=== PATIENT | female | born 1975 ===

== ENCOUNTER 2016-09-23 16:18 | Emergency (ER) | payer OTHER ==
[2016-09-23 17:03] VITALS: BP 110/75; PULSE 85; RESP 20; TEMP 98.6; O2SAT 100
--- NOTE | 2016-09-23 17:12 | C.PDOC ---
History Of Present Illness 41 y.o female presents to ED with complaints of fever, dysuria, urgency for 1 weeks and today developed low back pain and chills. Patient denies vomiting, diarrhea, numbness, weakness, or incontinence. Time Seen by Provider: 09/23/16 16:54 Chief Complaint (Nursing): Back Pain History Per: Patient History/Exam Limitations: no limitations Onset/Duration Of Symptoms: Worse Since (today), Other (1 week) Current Symptoms Are (Timing): Still Present Severity: Mild Pain Scale Rating Of: 3 Recent travel outside of the [place]: No Past Medical History Reviewed: Historical Data, Nursing Documentation, Vital Signs Vital Signs: Last Vital Signs Temp 98.6 F 09/23/16 16:59 Pulse 85 09/23/16 16:59 Resp 20 09/23/16 16:59 BP 110/75 09/23/16 16:59 Pulse Ox 100 09/23/16 18:50 - Medical History PMH: Gastritis, Migraine - [facility] Procedures RESECTION OF CERVIX, VIA NATURAL OR ARTIFICIAL OPENING (09/25/15) RESECTION OF UTERUS, VIA NATURAL OR ARTIFICIAL OPENING (09/25/15) Family History: States: Unknown Family Hx - Social History Hx Tobacco Use: No Hx Alcohol Use: No Hx Substance Use: No - Immunization History Hx Tetanus Toxoid Vaccination: No Hx Influenza Vaccination: No Hx Pneumococcal Vaccination: No Review Of Systems Except As Marked, All Systems Reviewed And Found Negative. Constitutional: Positive for: Fever, Chills Gastrointestinal: Negative for: Vomiting, Diarrhea Genitourinary: Positive for: Dysuria, Other (urgency). Negative for: Incontinence Musculoskeletal: Positive for: Back Pain (lower) Neurological: Negative for: Weakness, Numbness Physical Exam - Physical Exam Appears: Non-toxic, No Acute Distress Skin: Warm, Dry Head: Atraumatic, Normacephalic Eye(s): bilateral: Normal Inspection, EOMI Neck: Normal ROM, Supple Chest: Symmetrical Cardiovascular: Rhythm Regular Respiratory: Normal Breath Sounds, No Rales, No Rhonchi, No Wheezing Gastrointestinal/Abdominal: Soft, Tenderness (suprapubic), No Guarding, No Rebound Back: Normal Inspection, No CVA Tenderness Extremity: Normal ROM Neurological/Psych: Oriented x3, Normal Speech, Normal Cognition, Normal Motor, Normal Sensation Gait: Steady ED Course And Treatment O2 Sat by Pulse Oximetry: 100 (room air) Pulse Ox Interpretation: Normal Medical Decision Making Medical Decision Making: Impression: 41 y.o female with dysuria, urgency and frequency Plan: * Motrin, pyridium * UA, HCG, culture Progress: UA shows findings consistent with UTI. Will treat with Cipro PO Patient advised to drink fluids and continue antibiotics Disposition Counseled Patient/Family Regarding: Diagnosis, Need For Followup, Rx Given - Disposition Referrals: [facility] [Outside] Disposition: HOME/ ROUTINE Disposition Time: 17:38 Condition: STABLE Additional Instructions: [place] el antibitico dos veces al da y asegrese de terminar de yuri todos los antibiticos. Beber mucho lquido. Si se realiz un cultivo de orina, vuelva a llamar para obtener resultados en 2-3 jaen para confirmar que el antibitico est tratando david la infeccin urinaria. Prescriptions: Ciprofloxacin [Cipro] 1 tab PO BID #14 tab Phenazopyridine [Pyridium] 200 mg PO Q8 #6 tab Instructions: Urinary Tract Infection in Women (DC) Print Language: MALTESE - POA Present On Arrival: None - Clinical Impression Clinical Impression: UTI (urinary tract infection) - PA / RESIDENTIAL SOLAR CONSULTANT / Resident Statement MD/DO has reviewed & agrees with the documentation as recorded. - Scribe Statement The provider has reviewed the documentation as recorded by the Scribe Pauline Wood All medical record entries made by the Scribe were at my direction and personally dictated by me. I have reviewed the chart and agree that the record accurately reflects my personal performance of the history, physical exam, medical decision making, and the department course for this patient. I have also personally directed, reviewed, and agree with the discharge instructions and disposition.
[2016-09-23 17:26] LABS: RBC URINE 2 /hpf (0-3); URINE BACTERIA FEW (<OCC); URINE BILIRUBIN NEGATIVE (NEGATIVE); URINE BLOOD NEGATIVE (NEGATIVE); URINE COLOR Yellow (YELLOW); URINE GLUCOSE (UA) NORMAL (Normal); URINE KETONE NEGATIVE (NEGATIVE); URINE LEUKOCYTE ESTERASE TRACE Leu/uL (Negative); URINE PROTEIN NEGATIVE (NEGATIVE); URINE UROBILINOGEN NORMAL mg/dL (0.2-1.0); WBC URINE 11 /hpf (0-5)
== END 2016-09-23 18:07 | disposition home or self-care (01) ==
LOC: C.ER 16:18
DX: N39.0 Urinary tract infection, site not specified (principal); B96.89 Other specified bacterial agents as the cause of diseases classified elsewhere

== ENCOUNTER 2016-10-18 11:06 | Emergency (ER) | payer OTHER ==
[2016-10-18 12:23] LABS: RBC URINE 2 /hpf (0-3); URINE BACTERIA FEW (<OCC); URINE BILIRUBIN NEGATIVE (NEGATIVE); URINE BLOOD 1+ (NEGATIVE); URINE COLOR Yellow (YELLOW); URINE GLUCOSE (UA) NORMAL (Normal); URINE KETONE NEGATIVE (NEGATIVE); URINE LEUKOCYTE ESTERASE 3+ Leu/uL (Negative); URINE PROTEIN NEGATIVE (NEGATIVE); URINE UROBILINOGEN NORMAL mg/dL (0.2-1.0); WBC URINE 88 /hpf (0-5)
[2016-10-18] MEDS ORDERED: Sodium Chloride 0.9% 1,000 ML IV STA (12:30)
[2016-10-18] MEDS ORDERED: Sodium Chloride 0.9% 1,000 ML ONE (12:37)
[2016-10-18 12:52] LABS: BASO # 0.1 K/uL (0.0-0.2); BASO % 0.6 % (0.0-2.0); EOS # 0.1 K/uL (0.0-0.7); EOS % 0.9 % (0.0-4.0); HEMATOCRIT 38.2 % (34.0-47.0); LYMPH % 23.6 % (20.0-40.0); MEAN CELL VOLUME 88.6 fL (81.0-99.0); MEAN CORPUSCULAR HEMOGLOBIN 29.8 pg (27.0-31.0); MEAN CORPUSCULAR HGB CONC 33.7 g/dL (33.0-37.0); MEAN PLATELET VOLUME 7.6 fL (7.2-11.7); MONO # 0.6 K/uL (0.0-0.8); MONO % 7.6 % (0.0-10.0); RED CELL DISTRIBUTION WIDTH 13.3 % (11.5-14.5); WHITE BLOOD COUNT 8.4 K/uL (4.8-10.8)
[2016-10-18 13:04] LABS: CHLORIDE 99 mmol/L (98-107); POTASSIUM 4.3 mmol/L (3.6-5.2); SODIUM 136 mmol/L (132-148)
[2016-10-18 13:06] LABS: ALB/GLOB RATIO 1.1 (1.0-2.1); AST/SGOT 19 U/L (14-36); BILIRUBIN,TOTAL 0.8 mg/dL (0.2-1.3); CARBON DIOXIDE 26 mmol/L (22-30); GFR AFRICAN-AMERICAN > 60; TOTAL PROTEIN 7.6 g/dL (6.3-8.3)
[2016-10-18 13:07] LABS: ALKALINE PHOSPHATASE 65 U/L (38-126); ALT/SGPT 23 U/L (9-52); BLOOD UREA NITROGEN 10 mg/dL (7-17); CALCIUM 8.2 mg/dl (8.6-10.4); GLUCOSE,RANDOM 83 mg/dL (65-105)
[2016-10-18] MEDS ORDERED: cefTRIAXone IV 1 gm in Dextros 50 ML IV STA (13:35)
[2016-10-18] MEDS ORDERED: cefTRIAXone IV 1 gm in Dextros 50 ML IVPB ONE (13:45)
--- NOTE | 2016-10-18 14:37 | CT ---
PROCEDURE: CT Abdomen and Pelvis without Oral or IV contrast. HISTORY: low abd pain radiating to the back/? fever/UTI COMPARISON: None available. TECHNIQUE: Contiguous axial images of the abdomen and pelvis. No oral or IV contrast administered. Coronal and Sagittal reformats generated and reviewed. Radiation dose: Total exam DLP = 869.63 MGy-cm. This CT exam was performed using one or more of the following dose reduction techniques: Automated exposure control, adjustment of the mA and/or kV according to patient size, and/or use of iterative reconstruction technique. FINDINGS: There is limited evaluation of the solid organs without the administration of IV contrast. LOWER THORAX: No visible consolidation, pleural effusion, or pneumothorax. LIVER: Unremarkable unenhanced appearance. GALLBLADDER AND BILE DUCTS: Unremarkable unenhanced appearance. PANCREAS: Unremarkable unenhanced appearance. SPLEEN: Unremarkable unenhanced appearance. ADRENALS: Unremarkable unenhanced appearance. KIDNEYS AND URETERS: No hydronephrosis or obstructing renal calculus. BLADDER: The urinary bladder appears unremarkable. REPRODUCTIVE: Supracervical hysterectomy. APPENDIX: No secondary signs of acute appendicitis. BOWEL: The stomach is nondistended. Lack of oral contrast limits evaluation for bowel pathology. The bowel loops appear within normal limits of caliber without evidence of intestinal obstruction. PERITONEUM: No significant free fluid. No definite free air. LYMPH NODES: No bulky lymphadenopathy identified. VASCULATURE: No aortic aneurysm. BONES: No acute osseous abnormality is detected. OTHER FINDINGS: None. IMPRESSION: No acute findings. See above.
[2016-10-18 15:14] VITALS: O2SAT 99
[2016-10-18 17:00] VITALS: BP 101/67; PULSE 75; RESP 17; TEMP 98.2
--- NOTE | 2016-10-18 17:19 | C.PDOC ---
History Of Present Illness The patient, a 41 y/o female, presents to the ED for evaluation of generalized body aches, headaches, dysuria, and pelvic pain which radiates towards back. Patient also reports intermittent fevers. Patient was previously evaluated in ED for UTI-related symptoms and was given Rx for Ciproflaxin. Patient states she has not followed up as instructed during her last visit. Patient denies nausea, vomiting, diarrhea. Time Seen by Provider: 10/18/16 12:04 Chief Complaint (Nursing): Female Genitourinary History Per: Patient History/Exam Limitations: no limitations Onset/Duration Of Symptoms: Days, Intermittent Episodes Current Symptoms Are (Timing): Still Present Radiation Of Pain To:: Back Quality Of Discomfort: "Pain" Associated Symptoms: Fever, Back Pain, Urinary Symptoms (+dysuria ). denies: Nausea, Vomiting, Diarrhea Exacerbating Factors: None Alleviating Factors: None Last Bowel Movement: Today Recent travel outside of the [place] States: No Additional History Per: Patient Abnormal Vaginal Bleeding: No Past Medical History Reviewed: Historical Data, Nursing Documentation, Vital Signs Vital Signs: Last Vital Signs Temp 98.2 F 10/18/16 16:59 Pulse 75 10/18/16 16:59 Resp 17 10/18/16 16:59 BP 101/67 10/18/16 16:59 Pulse Ox 99 10/18/16 18:16 - Medical History PMH: Gastritis, Kidney Stones, Migraine Surgical History: No Surg Hx - [facility] Procedures RESECTION OF CERVIX, VIA NATURAL OR ARTIFICIAL OPENING (09/25/15) RESECTION OF UTERUS, VIA NATURAL OR ARTIFICIAL OPENING (09/25/15) Family History: States: Unknown Family Hx - Social History Hx Tobacco Use: No Hx Alcohol Use: No Hx Substance Use: No - Immunization History Hx Tetanus Toxoid Vaccination: No Hx Influenza Vaccination: No Hx Pneumococcal Vaccination: No Review Of Systems Except As Marked, All Systems Reviewed And Found Negative. Constitutional: Positive for: Fever Genitourinary: Positive for: Pelvic Pain Musculoskeletal: Positive for: Back Pain, Other (generalized body aches ) Neurological: Positive for: Headache Physical Exam - Physical Exam Appears: Non-toxic, No Acute Distress Skin: Normal Color, Warm, Dry Head: Atraumatic, Normacephalic Eye(s): bilateral: Normal Inspection Oral Mucosa: Moist Neck: Supple Chest: Symmetrical, No Deformity, No Tenderness Cardiovascular: Rhythm Regular, No Murmur Respiratory: Normal Breath Sounds, No Rales, No Rhonchi, No Wheezing Gastrointestinal/Abdominal: Tenderness (mild, suprapubic ), No Guarding, No Rebound Back: Normal Inspection, No Vertebral Tenderness, No Paraspinal Tenderness Extremity: Normal ROM, Capillary Refill (less than 2 seconds ) Neurological/Psych: Oriented x3, Normal Speech, Normal Cognition Gait: Steady ED Course And Treatment - Laboratory Results Result Diagrams: 10/18/16 12:48 10/18/16 12:48 O2 Sat by Pulse Oximetry: 99 (on RA) Pulse Ox Interpretation: Normal - CT Scan/US CT A/P Other Rad Studies (CT/US): Interpreted By Me, Read By Radiologist CT/US Interpretation: Accession No. : [id number]. Patient Name / ID : DARRELL HANKS / [id number]. Exam Date : 10/18/2016 14:07:28 ( Approved ). Study Comment : Sex / Age : F / 41Y. Creator : Mary Ann Krueger MD. Dictator : Mary Ann Krueger MD. Baked And Graphite Inspector : Medical Technician : Mary Ann Krueger MD. Approver2 : Report Date : 10/18/2016 14:36:06. My Comment : . PROCEDURE: CT Abdomen and Pelvis without Oral or IV contrast. HISTORY: low abd pain radiating to the back/? fever/UTI. COMPARISON: None available. TECHNIQUE: Contiguous axial images of the abdomen and pelvis. No oral or IV contrast administered. Coronal and Sagittal reformats generated and reviewed. Radiation dose: Total exam DLP = 869.63 MGy-cm. This CT exam was performed using one or more of the following dose reduction techniques: Automated exposure control, adjustment of the mA and/or kV according to patient size, and/ or use of iterative reconstruction technique. FINDINGS: There is limited evaluation of the solid organs without the administration of IV contrast. LOWER THORAX: No visible consolidation, pleural effusion, or pneumothorax. LIVER: Unremarkable unenhanced appearance. GALLBLADDER AND BILE DUCTS: Unremarkable unenhanced appearance. PANCREAS: Unremarkable unenhanced appearance. SPLEEN: Unremarkable unenhanced appearance. ADRENALS: Unremarkable unenhanced appearance. KIDNEYS AND URETERS: No hydronephrosis or obstructing renal calculus. BLADDER: The urinary bladder appears unremarkable. REPRODUCTIVE: Supracervical hysterectomy. APPENDIX: No secondary signs of acute appendicitis. BOWEL: The stomach is nondistended. Lack of oral contrast limits evaluation for bowel pathology. The bowel loops appear within normal limits of caliber without evidence of intestinal obstruction. PERITONEUM: No significant free fluid. No definite free air. LYMPH NODES: No bulky lymphadenopathy identified. VASCULATURE: No aortic aneurysm. BONES: No acute osseous abnormality is detected. OTHER FINDINGS: None. IMPRESSION: No acute findings. See above. Progress Note: labs ordered; UA results show traces of UTI. pt received Morphine IV, Rocephin IV, and IV Fluids. CT A/P ordered, review shows study is unremarkable. On reassessment, pt is resting comfortably, showing no signs of distress, remains afebrile with no meningeal signs, and is stable for discharge. Pt is advised to f/u with her PMD within 1-2 days for further evaluation. Disposition - Disposition Referrals: [facility] [Outside] [facility] [Outside] Disposition: HOME/ ROUTINE Disposition Time: 17:16 Condition: STABLE Additional Instructions: Follow up in Clinic within 1-2 days. Return to ED if feel worse. Prescriptions: Cephalexin [cephalexin] 500 mg PO Q6 #28 cap Phenazopyridine [Pyridium] 200 mg PO TID #15 tab Instructions: Urinary Tract Infection in Women (ED) Forms: Work/School/Gym Excuse Print Language: TAMAZIGHT - Clinical Impression Clinical Impression: UTI (urinary tract infection) - PA / STRUCTURAL IRON WORKER / Resident Statement MD/DO has reviewed & agrees with the documentation as recorded. - Scribe Statement The provider has reviewed the documentation as recorded by the Scribe (Christal Wood) All medical record entries made by the Scribe were at my direction and personally dictated by me. I have reviewed the chart and agree that the record accurately reflects my personal performance of the history, physical exam, medical decision making, and the department course for this patient. I have also personally directed, reviewed, and agree with the discharge instructions and disposition.
== END 2016-10-18 17:44 | disposition home or self-care (01) ==
LOC: C.ER 11:06
DX: N39.0 Urinary tract infection, site not specified (principal); B95.7 Other staphylococcus as the cause of diseases classified elsewhere
CPT/HCPCS: 74176; 80053; 81001; 82550; 83690; 84703; 85025; 87040; 87086; 87181; 96365; 96375; 99285; J0696; J2270; J7040